=== PATIENT | female | born 1975 | race Caucasian/White ===

== ENCOUNTER 2017-02-09 05:01 | Day surgery (SDC) | payer BC ==
[2017-02-08 15:03] VITALS: BMI 19.1
[2017-02-09] MEDS ORDERED: PROPOFOL 20 ML ONE (14:16)
[2017-02-09] MEDS ORDERED: SUCCINYLCHOLINE CHLORIDE 200 MG/10 ML VIAL ONE (14:16)
[2017-02-09] MEDS ORDERED: MIDAZOLAM HCL 2 MG/2 ML SINGLE DOSE VIAL ONE (14:20)
[2017-02-09] MEDS ORDERED: LIDOCAINE HCL/PF 2% SDV 5ML VIAL ONE (14:32)
--- NOTE | 2017-02-09 14:44 | HP ---
Past Medical History - Primary Care Physician PCP:: Yaw Bernard - Admission Chief Complaint: 41 yo P1 with missed AB admitted for suction, D&C History of Present Illness: Missed AB, no pain, no bleeding History Source: Patient, Medical Record Limitations to Obtaining History: No Limitations - Past Medical History TRASH MAN: No: Alzheimer's, CVA, Dementia, Migraine, Multiple Sclerosis, Peripheral Neuropathy, Parkinson's, Seizure, Syncope, TIA, Vertigo, Other Cardiovascular: No: AFIB, Aneurysm, Aortic Insufficiency, Aortic Stenosis, CAD, CHF, Deep Vein Thrombosis, HTN, Hyperlipdemia, LA, Mitral Insufficiency, Mitral Stenosis, Murmur, Pulmonary Hypertension, Other Pulmonary: No: Asthma, Bronchitis, Cancer, COPD, O2 Dependent, Pneumonia, Previously Intubated, Pulmonary Embolus, Pulmonary Fibrosis, Sleep Apnea, Other Gastrointestinal: No: Ascites, Cancer, Constipation, Crohn's Disease, Diverticulitis, Diverticulosis, Esophageal Varices, Gastritis, GERD, GI Bleed, Hemorrhoids, Hiatal Hernia, Inflamatory Bowel Disease, Irritable Bowel Disease, Pancreatitis, Peptic Ulcer Disease, Ulcerative Colitis, Other Hepatobiliary: No: Cirrhosis, Cholelithiasis, Cholecystitis, Choledocholithiasis , Hepatitis A, Hepatitis B, Hepatitis C, Other Renal/: No: Renal Failure, Renal Inusuff, BPH, Cancer, Hematuria, Hemodialysis , Neurogenic Bladder, Renal Calculi, UTI, Other Reproductive: Yes: Fibroids ...Para: 1 Heme/Onc: No: Anemia, B12 Deficiency, Bleeding Disorder, Cancer, Current Chemotherapy, Current Radiation Therapy, Hemochromatosis, Hypercoaguable State, Myeloproliferative Synd, Sickle Cell Disease, Sickle Cell Trait, Thrombocytopenia, Other Infectious Disease: No: AIDS, C-Diff, Herpes Zoster, HIV, MRSA, STD's, Tuberculosis, VREF, Other Psych: No: Addictions, Anxiety, Bipolar, Depression, Panic, Psychosis, Schizophrenia, Other Musculoskeletal: No: Bursitis, Chronic low back pain, Hemiparesis, Hemiplegia, Osteoarthritis, Paraplegia, Other Rheumatology: No: Fibromyalgia, Gout, Lupus, Rheumatoid Arthritis, Sarcoidosis, Vasculitis, Other ENT: No: Allergic Rhinitis, Sinusitis, Other Endocrine: Yes: Other (thyroid nodule, euthyroid) Dermatology: No: Basal Cell, Cellulitis, Eczema, Melanoma, Psoriasis, Squamous Cell, Other - Past Surgical History Past Surgical History: No: None, AAA Repair, AICD, Amputation, Appendectomy, Arthrosocopy, AV Fistula/Graft, Bariatric Surgery, Breast Biopsy, Bypass, CABG, Carotid Endarterectomy, Cataract Removal, Cholecystectomy, Colectomy, Colonoscopy, Colostomy, Craniotomy, , Cystectomy, Hernia Repair, Hysterectomy, Ileal Conduit, Ileosotomy, Joint Replacement, Kidney Transplant, Laminectomy, Liver Transplant, Mastectomy, Nephrectomy, Oopherectomy, Orchiectomy, Permanent Pacemaker, Prostatectomy, Splenectomy, Stent, Thoracotomy , TURP, Tonsillectomy, Tubal Ligation, Upper Endoscopy, Valve Replacement, Vasectomy, Vein Stripping/Ligation Hx Myomectomy: No Hx Transabdominal Cerclage: No - Smoking History Smoking history: Never smoked - Alcohol/Substance Use Hx Alcohol Use: No History of Substance Use: reports: None - Social History Usual Living Arrangement: Yes: With Spouse, With Child ADL: Independent 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 History of Recent Travel: No Home Medications - Allergies Allergies/Adverse Reactions: Allergies Allergy/AdvReac Type Severity Reaction Status Date / Time No Known Allergies Allergy Verified 02/08/17 14:56 - Home Medications Home Medications: Ambulatory Orders NK [No Known Home Medication] 02/08/17 Family Disease History - Family Disease History Family History: Denies Review of Systems - Review of Systems Constitutional: reports: No Symptoms Eyes: reports: No Symptoms HENT: reports: No Symptoms Neck: reports: No Symptoms Cardiovascular: reports: No Symptoms Respiratory: reports: No Symptoms Gastrointestinal: reports: No Symptoms Genitourinary: reports: No Symptoms Breasts: reports: No Symptoms Reported Musculoskeletal: reports: No Symptoms Integumentary: reports: No Symptoms Neurological: reports: No Symptoms Endocrine: reports: No Symptoms Hematology/Lymphatic: reports: No Symptoms Psychiatric: reports: No Symptoms Pain Intensity: 0 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 Vital Signs: Vital Signs Temperature 98.3 F 02/09/17 12:46 Pulse Rate 68 02/09/17 12:46 Respiratory Rate 20 02/09/17 12:46 Blood Pressure 110/74 02/09/17 12:46 O2 Sat by Pulse Oximetry (%) 97 02/09/17 12:46 Constitutional: Yes: Well Nourished, No Distress, Calm Eyes: Yes: WNL, Conjunctiva Clear HENT: Yes: WNL, Atraumatic, Normocephalic Neck: Yes: WNL, Supple, Trachea Midline Cardiovascular: Yes: WNL, Regular Rate and Rhythm Respiratory: Yes: WNL, Regular, CTA Bilaterally Gastrointestinal: Yes: WNL, Normal Bowel Sounds, Soft Renal/: Yes: WNL Pelvis: Yes: WNL External Genitalia: Yes: Normal Internal Exam Deferred: No Vaginal Exam: Yes: Normal Cervix: Yes: Normal Uterus: Yes: Anteverted, Enlarged Adnexa: Normal: Left, Right Musculoskeletal: Yes: WNL Extremities: Yes: WNL Edema: No Integumentary: Yes: WNL Neurological: Yes: WNL, Alert, Oriented ...Motor Strength: WNL Psychiatric: Yes: WNL, Alert, Oriented Imaging - Results Ultrasound: Report Reviewed Assessment/Plan 41 yo P1 with missed AB admitted for suction, D&C. We discussed the risks, benefits, and alternatives of surgery. Risks of infection, bleeding, pain, scarring, amenorrhea, perforation, etc. discussed. Pt verbalized her understanding and requested to proceed.
[2017-02-09] MEDS ORDERED: KETOROLAC TROMETHAMINE 30 MG/1 ML VIAL ONE (14:58)
[2017-02-09] MEDS ORDERED: IBUPROFEN 600 MG TABLET (FP) PO PRN (15:22)
[2017-02-09] MEDS ORDERED: ACETAMINOPHEN 325 MG TABLET (FP) PO PRN (15:22)
[2017-02-09] MEDS ORDERED: PROMETHAZINE HCL 25 MG/1 ML VIAL IVPUSH PRN (15:35)
[2017-02-09] MEDS ORDERED: oxyCODONE HCL 5 MG TABLET PO PRN (15:35)
[2017-02-09] MEDS ORDERED: ONDANSETRON 4 MG/2 ML VIAL IVPUSH PRN (15:35)
--- NOTE | 2017-02-09 15:35 | OP ---
Operative Note - Note: Operative Date: 02/09/17 Pre-Operative Diagnosis: Missed AB, fibroid uterus Operation: Suction, D&C. Findings: POC, normal appearing uterine cavity felt on curettage Post-Operative Diagnosis: Same as Pre-op Surgeon: Yaw Bernard Anesthesiologist/RECEIVING CLERK: Eliecre Germain Anesthesia: General Specimens Removed: POC Estimated Blood Loss (mls): 60 Blood Volume Replaced (mls): 0 Fluid Volume Replaced (mls): 700 Operative Report Dictated: Yes
[2017-02-09] MEDS ORDERED: LACTATED RINGERS SOLUTION 1,000 ML IV SCH (15:45)
[2017-02-09 16:44] VITALS: PULSE 60
[2017-02-09 17:56] VITALS: TEMP 97.6
[2017-02-09 18:36] VITALS: BP 100/55
--- NOTE | 2017-02-10 19:10 | OP ---
DATE OF OPERATION: 02/09/2017 PREOPERATIVE DIAGNOSIS: Missed , fibroid uterus. POSTOPERATIVE DIAGNOSIS: Missed , fibroid uterus. SURGEON: Hasmukh Hicks M.D. PROCEDURE: Missed treated surgically with suction dilation and curettage less than 14 weeks of gestation. PATHOLOGY: Products of conception. COMPLICATIONS: None. ANESTHESIA: General. ANESTHESIOLOGIST: Eliecer Germain M.D. INTRAVENOUS FLUID: 700 mL. ESTIMATED BLOOD LOSS: 60 mL. FINDINGS: Slightly enlarged anteverted uterus with no pelvic or adnexal masses. Products of conception were noted on suction curettage. A normal endometrial cavity was palpated with the sharp curet. No retained products of conception. PROCEDURE: The patient was met preoperatively. Risks, benefits, and alternatives of surgery were discussed in detail. All questions were answered. The patient was then brought to the OR. The patient was placed on a surgical table in the supine position. General anesthesia was achieved without difficulty. The patient was then placed in a dorsal lithotomy position using adjustable Mookie stirrups. The patient was examined under anesthesia with the results as described previously. The patient was then prepped and draped in the usual sterile fashion. A sterile speculum was introduced inside the vagina with good visualization of the cervix. The anterior cervical lip was grasped with a single tooth tenaculum. The cervical os was dilated to accommodate size 25 Willis dilator. An 8-mm suction curet was used to evacuate the products of conception. Once this was completed, a gentle curettage was performed to assure no retained tissue. Once this was completed, all of the instruments were removed from the patient. Good hemostasis was confirmed. Sponge, lap, and instrument counts were correct. The patient was returned to supine position. She was transferred to recovery room awake and in stable condition. HASMUKH HICKS M.D. [id number]
--- NOTE | 2017-02-11 12:26 | PATH ---
Surgical Pathology Report Patient Name: CECILIA SCHROEDER Med. Rec. #: [id number] /Age/Gender: 1975 (Age: 41) / F Account: [id number] Location: [facility] SURGICAL Taken: 02/09/2017 Received: 02/10/2017 Reported: 02/11/2017 Physicians: Yaw Bernard M.D. Specimen(s) Received PRODUCTS OF CONCEPTION Clinical History Missed Final Diagnosis UTERINE CONTENTS, EVACUATION: CHORIONIC VILLI CONSISTENT WITH PRODUCTS OF CONCEPTION. Electronically Signed Maulik Tse M.D. Gross Description Received in formalin labeled "products of conception," is an 11.5 x 6.5 x 1.6 cm aggregate of red-brown soft tissue fragments. Villous tissue is identified. No definite somatic tissue is identified. A senior sales representative portion is submitted in one cassette. /02/10/2017 saudi02/10/2017
== END 2017-02-09 18:15 | disposition home or self-care (01) ==
LOC: JASU-SURG 05:01
PROVIDERS: ATTEND Obstetrics & Gynecology
PROC: 10D17ZZ Extraction of Products of Conception, Retained, Via Natural or Artificial Opening (ICD-10-PCS; principal; 2017-02-09 15:00)
DX: O02.1 Missed abortion (principal); D25.9 Leiomyoma of uterus, unspecified
CPT/HCPCS: 88305-TC; 94760

== ENCOUNTER 2017-08-16 14:02 | Inpatient (IN) | payer BC ==
[2017-08-16 14:07] VITALS: BMI 19.4
--- NOTE | 2017-08-16 14:18 | PDOC ---
History of Present Illness - General Chief Complaint: Vaginal Bleeding Stated Complaint: PCP SENT FOR D&C Time Seen by Provider: 08/16/17 14:10 History Source: Patient - History of Present Illness Initial Comments: 08/16/17 14:18 Patient is a 42 y.o. female who presents at the [facility] of Dr. Bernard for direct admit for a D&C later today 2/2 to a incomplete spontaneous . At presentation patient is c/o lightheadedness (likely 2/2 to active vaginal bleed ) however denies any chest pain or shortness of breath. Past History - Past Medical History Allergies/Adverse Reactions: Allergies Allergy/AdvReac Type Severity Reaction Status Date / Time No Known Allergies Allergy Verified 08/16/17 14:06 Home Medications: Ambulatory Orders NK [No Known Home Medication] 08/16/17 Anemia: Yes Asthma: No Cancer: No Cardiac Disorders: No CVA: No COPD: No CHF: No Dementia: No Diabetes: No GI Disorders: No Disorders: No HTN: No Hypercholesterolemia: No Liver Disease: No Seizures: No Thyroid Disease: Yes (? HYPER - NO MEDS) - Surgical History Abdominal Surgery: No Appendectomy: No Cardiac Surgery: No Cholecystectomy: No Lung Surgery: No Neurologic Surgery: No Orthopedic Surgery: No - Reproductive History Expected Date of Delivery: 10/26/15 (#): 1 Para: 1 - Suicide/Smoking/Psychosocial Hx Smoking History: Never smoked Hx Alcohol Use: No Drug/Substance Use Hx: No Substance Use Type: None Hx Substance Use Treatment: No Review of Systems - Review of Systems Constitutional: No: Chills, Fever Respiratory: No: Cough, Shortness of Breath Cardiac (ROS): Yes: Lightheadedness. No: Chest Pain, Irregular Heart Rate, Palpitations All Other Systems: Reviewed and Negative *Physical Exam - Vital Signs Last Vital Signs Temp Pulse Resp BP Pulse Ox 98.1 F 60 18 127/73 100 08/16/17 14:05 08/16/17 14:05 08/16/17 14:05 08/16/17 14:05 08/16/17 14:05 ED Treatment Course - LABORATORY CBC & Chemistry Diagram: 08/16/17 14:54 08/16/17 14:55 Medical Decision Making - Medical Decision Making 08/16/17 14:34 Patient is 42 y.o. female [facility] for D&C later today 2/2 to incomplete spontaneous . On PE patient is afebrile, hemodynamically stable but does c/o lightheadedness likely 2/2 to blood loss. PLAN: 1. CBC, CMP 2. PT, PTT 3. EKG 4. Type & Screen Disposition: Admit to Dr. Bernard *DC/Admit/Observation/Transfer Diagnosis at time of Disposition: Spontaneous - Discharge Dispostion Condition at time of disposition: Good Admit: Yes
[2017-08-16 15:02] LABS: BASOPHIL 1.2 % (0-2.0); EOSINOPHIL 5.4 % (0-4.5); MCH 30.8 pg (25.7-33.7); MCHC 33.1 g/dl (32.0-36.0); MEAN PLT VOLUME 9.3 fl (7.5-11.1); NEUTROPHILS 65.2 % (42.8-82.8); PLATELET COUNT 190 K/MM3 (134-434); RDW 14.3 % (11.6-15.6); WHITE BLOOD COUNT 6.1 K/mm3 (4.0-10.0)
[2017-08-16 15:19] LABS: INR 0.99 (0.82-1.09); PROTHROMBIN TIME (PATIENT) 10.9 SEC (9.98-11.88)
[2017-08-16 15:22] LABS: ACTIVATED PTT 35.7 SECONDS (26.9-34.4)
[2017-08-16 15:25] LABS: ALBUMIN 3.9 g/dl (3.4-5.0); ANION GAP 8 (8-16); BILIRUBIN,TOTAL 0.2 mg/dL (0.2-1.0); CALCIUM 8.9 mg/dL (8.5-10.1); CO2 29 mmol/L (21-32); CREATININE 0.7 mg/dL (0.55-1.02); GLUCOSE,RANDOM 88 mg/dL (74-106); SGOT/AST 15 U/L (15-37); SGPT/ALT 30 U/L (12-78); TOT PROT 7.2 g/dl (6.4-8.2)
[2017-08-16 15:26] LABS: ALK PHOS 66 U/L (45-117)
--- NOTE | 2017-08-16 16:26 | PDOC ---
Attending Attestation - Resident Resident Name: RitaBobbi - ED Attending Attestation I have performed the following: I have examined & evaluated the patient, The case was reviewed & discussed with the resident, I agree w/resident's findings & plan, Exceptions are as noted - HPI HPI: 08/16/17 16:21 42 yo F presenting to the ER due to vaginal bleeding To go to the OR today for D&C - Physicial Exam PE: 08/16/17 16:24 GENERAL: The patient is in no acute distress. LUNGS: Breath sounds equal, clear to auscultation bilaterally. No wheezes, and no crackles. HEART:Regular rate and rhythm, normal S1 and S2 without murmur, rub or gallop. ABDOMEN: Soft, nontender, normoactive bowel sounds. - Medical Decision Making 08/16/17 16:24 42-year-old female was anything to the emergency department with vaginal bleeding To the OR with Dr Swift Twelve-lead EKG was performed and reviewed by me. There is normal sinus rhythm with a normal rate. The axis is normal. The intervals are normal. There are no ST or T wave abnormalities. Impression: Normal twelve-lead EKG 08/16/17 16:26
[2017-08-16] MEDS ORDERED: FLU VACCINE QUAD 60 MCG/0.5 ML (MDV 17-18) IM ONE (17:45)
[2017-08-16] MEDS ORDERED: DEXTROSE 5%-LACTATED RINGERS 1,000 ML IV SCH (18:15)
--- NOTE | 2017-08-16 23:17 | HP ---
Past Medical History - Primary Care Physician PCP:: Yaw Bernard - Admission Chief Complaint: 42yo P1 with incomlpete Ab and anemia History of Present Illness: Heavy bleeding on 08/12/17 and dizzy today. Pt was admitted from the ER. We discussed expectant mgt and D&C. 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: No: Alzheimer's, CVA, Dementia, Migraine, Multiple Sclerosis, Peripheral Neuropathy, Parkinson's, Seizure, Syncope, TIA, Vertigo, Other Cardiovascular: No: AFIB, Aneurysm, Aortic Insufficiency, Aortic Stenosis, CAD, CHF, Deep Vein Thrombosis, HTN, Hyperlipdemia, UT, Mitral Insufficiency, Mitral Stenosis, Murmur, Pulmonary Hypertension, Other Pulmonary: No: Asthma, Bronchitis, Cancer, COPD, O2 Dependent, Pneumonia, Previously Intubated, Pulmonary Embolus, Pulmonary Fibrosis, Sleep Apnea, Other Gastrointestinal: No: Ascites, Cancer, Constipation, Crohn's Disease, Diverticulitis, Diverticulosis, Esophageal Varices, Gastritis, GERD, GI Bleed, Hemorrhoids, Hiatal Hernia, Inflamatory Bowel Disease, Irritable Bowel Disease, Pancreatitis, Peptic Ulcer Disease, Ulcerative Colitis, Other Hepatobiliary: No: Cirrhosis, Cholelithiasis, Cholecystitis, Choledocholithiasis , Hepatitis A, Hepatitis B, Hepatitis C, Other Renal/: No: Renal Failure, Renal Inusuff, BPH, Cancer, Hematuria, Hemodialysis , Neurogenic Bladder, Renal Calculi, UTI, Other Reproductive: No: Ectopic , Endometriosis, Fibroids, PID, Polycystic Ovary Syndrome, Postmenopausal, Other ...Para: 1 Heme/Onc: Yes: Anemia Infectious Disease: No: AIDS, C-Diff, Herpes Zoster, HIV, MRSA, STD's, Tuberculosis, VREF, Other Psych: No: Addictions, Anxiety, Bipolar, Depression, Panic, Psychosis, Schizophrenia, Other Musculoskeletal: No: Bursitis, Chronic low back pain, Hemiparesis, Hemiplegia, Osteoarthritis, Paraplegia, Other Rheumatology: No: Fibromyalgia, Gout, Lupus, Rheumatoid Arthritis, Sarcoidosis, Vasculitis, Other ENT: No: Allergic Rhinitis, Sinusitis, Other Endocrine: Yes: Other (thyroid nodule, euthyroid). 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 of 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 Travel: No Home Medications - Allergies Allergies/Adverse Reactions: Allergies Allergy/AdvReac Type Severity Reaction Status Date / Time No Known Allergies Allergy Verified 08/16/17 14:06 - Home Medications Home Medications: Ambulatory Orders NK [No Known Home Medication] 08/16/17 Family Disease History - Family Disease History Family History: Unremarkable Review of Systems - Review of Systems Constitutional: reports: Weakness Eyes: reports: No Symptoms HENT: reports: No Symptoms Neck: reports: No Symptoms Cardiovascular: reports: No Symptoms Respiratory: reports: No Symptoms Gastrointestinal: reports: No Symptoms Genitourinary: reports: No Symptoms Breasts: reports: No Symptoms Reported Musculoskeletal: reports: No Symptoms Integumentary: reports: No Symptoms Neurological: reports: No Symptoms Endocrine: reports: No Symptoms Hematology/Lymphatic: reports: No Symptoms Psychiatric: reports: No Symptoms Pain Intensity: 3 Physical 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-ANALYTICAL DATA 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 Vital Signs: Vital Signs Temperature 98.5 F 08/16/17 17:15 Pulse Rate 61 08/16/17 17:15 Respiratory Rate 18 08/16/17 21:00 Blood Pressure 111/52 08/16/17 17:15 O2 Sat by Pulse Oximetry (%) 96 08/16/17 21:00 Constitutional: Yes: Well Nourished, No Distress, Calm Eyes: Yes: WNL, Conjunctiva Clear, EOM Intact HENT: Yes: WNL, Atraumatic, Normocephalic Neck: Yes: WNL, Supple, Trachea Midline Cardiovascular: Yes: WNL, Regular Rate and Rhythm Respiratory: Yes: WNL, Regular, CTA Bilaterally Gastrointestinal: Yes: WNL, Normal Bowel Sounds, Soft ...Rectal Exam: Yes: Deferred Renal/: Yes: WNL Pelvis: Yes: WNL External Genitalia: Yes: Normal Internal Exam Deferred: No Vaginal Exam: Yes: Normal Cervix: Yes: Other (os open) Uterus: Yes: Enlarged Adnexa: Normal: Left, Right Musculoskeletal: Yes: WNL Extremities: Yes: WNL Edema: No Integumentary: Yes: WNL Neurological: Yes: WNL, Alert, Oriented ...Motor Strength: WNL Psychiatric: Yes: WNL, Alert, Oriented Labs: CBC, BMP 08/16/17 14:54 08/16/17 14:55 Imaging - Results Ultrasound: Report Reviewed Assessment/Plan 42yo P1 with incomplete Ab admitted for D&C. We had a long discussion about the risks, benefits, and alternatives of surgery. I explained the risks of infection , bleeding, scarring, amenorrhea, Asherman's syndrome, infertility, perforation , need for additional surgery to treat any complications, etc. The pt declined expectant management of incomplete ab or prostaglandin tx. She requested to proceed with surgery.
[2017-08-16] MEDS ORDERED: KETOROLAC TROMETHAMINE 30 MG/1 ML VIAL ONE (23:25)
[2017-08-16] MEDS ORDERED: LIDOCAINE HCL/PF 2% SDV 5ML VIAL ONE (23:25)
[2017-08-16] MEDS ORDERED: PROPOFOL 20 ML ONE (23:25)
[2017-08-16] MEDS ORDERED: DEXAMETHASONE SOD PHOSPHATE 4 MG/1 ML VIAL ONE (23:25)
[2017-08-16] MEDS ORDERED: MIDAZOLAM HCL 2 MG/2 ML SINGLE DOSE VIAL ONE ×2 (23:25)
[2017-08-16] MEDS ORDERED: ONDANSETRON 4 MG/2 ML VIAL IVPUSH PRN (23:51)
[2017-08-16] MEDS ORDERED: PROMETHAZINE HCL 25 MG/1 ML VIAL IVPUSH PRN (23:51)
[2017-08-16] MEDS ORDERED: oxyCODONE HCL 5 MG TABLET PO PRN (23:51)
--- NOTE | 2017-08-16 23:54 | OP ---
Operative Note - Note: Operative Date: 08/16/17 Pre-Operative Diagnosis: Incomplete Ab Operation: Suction D&C Findings: Open cervical os, enlarged uterus, Small amount of POC Post-Operative Diagnosis: Same as Pre-op Surgeon: Yaw Bernard Anesthesiologist/DISPATCHER SERVICE CHIEF: Storm Yanez Anesthesia: General Specimens Removed: POC Estimated Blood Loss (mls): 30 Blood Volume Replaced (mls): 0 Fluid Volume Replaced (mls): 500 Operative Report Dictated: Yes
--- NOTE | 2017-08-17 07:38 | OP ---
DATE OF OPERATION: 08/16/2017 PREOPERATIVE DIAGNOSIS: Incomplete . POSTOPERATIVE DIAGNOSIS: Incomplete . PROCEDURES PERFORMED: Suction dilatation and curettage. SURGEON: Hasmukh Hicks MD ANESTHESIOLOGIST: Storm Yanez M.D. ANESTHESIA: General. COMPLICATIONS: None. PATHOLOGY: Products of conception. INTRAVENOUS FLUIDS: 500 mL. ESTIMATED BLOOD LOSS: 30 mL. FINDINGS: Examination under anesthesia revealed an enlarged, anteverted uterus consistent with approximately 8 weeks of gestation. An open cervical os was noted. The cervical os was dilated to approximately 1 to 2 cm. A small amount of products of conception noted at suction curettage. No retained products of conception at the end of the procedure. DESCRIPTION OF PROCEDURE: The patient was met preoperatively. The risks, benefits and alternatives of surgery were discussed in detail. All questions were answered. The patient was then brought to the OR, with the IV running. She was placed on the surgical table in the supine position. General anesthesia was achieved without difficulty. The patient was then placed in a dorsal lithotomy position using adjustable Mookie stirrups. She was examined under anesthesia, with the findings as described above. The time-out procedure was conducted as per standard protocol. The patient was then prepped and draped in the usual sterile fashion. A sterile speculum was introduced inside the vagina, with good visualization of the cervix. An Allis clamp was then used to grasp the anterior cervical lip. The cervical os did not need to be dilated. An 8-mm suction curette was then used to evacuate the products of conception. Once the products of conception were removed, a gentle sharp curettage was performed to assure no retained products of conception. Once this was completed, good hemostasis was noted. All of the instruments were removed from the patient. Sponge, lap and instrument counts were correct. The patient was transferred to the recovery room awake and in stable condition. HASMUKH HICKS M.D. [id number]
--- NOTE | 2017-08-17 10:05 | PN ---
Progress Note (short form) - Note Progress Note: POD #1 - s/p D&C under general anesthesia. Pt. doing well, walking about in solarium without complaints. No apparent anesthetic complications noted. Continue current care.
[2017-08-17 10:20] VITALS: BP 108/57; PULSE 82; TEMP 98.6
--- NOTE | 2017-08-17 12:00 | EKG ---
Test Reason : Blood Pressure : / mmHG Vent. Rate : 064 BPM Atrial Rate : 064 BPM P-R Int : 156 ms QRS Dur : 084 ms QT Int : 416 ms P-R-T Axes : 029 067 042 degrees QTc Int : 429 ms NORMAL SINUS RHYTHM NORMAL ECG NO PREVIOUS ECGS AVAILABLE Confirmed by TIMO HINOJOSA, CHANNING ([id number]) on 08/17/2017 11:59:44 AM Referred By: Confirmed By:CHANNING GREENWOOD MD
--- NOTE | 2017-08-23 15:27 | PATH ---
Surgical Pathology Report Patient Name: CECILIA SCHROEDER Med. Rec. #: [id number] /Age/Gender: 1975 (Age: 42) / F Account: [id number] Location: [facility] MED/SURG Taken: 08/16/2017 Received: 08/17/2017 Reported: 08/23/2017 Physicians: Yaw Bernard M.D. Specimen(s) Received UTERINE CONTENTS Clinical History Incomplete Final Diagnosis UTERINE CONTENTS, DILATATION AND CURETTAGE: CHORIONIC VILLI AND DECIDUA CONSISTENT WITH PRODUCTS OF CONCEPTION. Electronically Signed Rossy Terry M.D. Gross Description Received in formalin labeled "uterine contents," is a 7.5 x 7.0 x 0.5 cm aggregate of randall-brown soft tissue fragments. No definite villous tissue is identified. No somatic tissue is identified. A delivery representative portion is submitted in 3 cassettes. /08/17/2017 saudi08/17/2017
== END 2017-08-17 10:28 | disposition home or self-care (01) | DRG 770 ==
LOC: JER 14:02 → JERBED 14:14 → J7W 16:58
PROVIDERS: ADMIT Obstetrics & Gynecology; ATTEND Obstetrics & Gynecology
PROC: 10D17ZZ Extraction of Products of Conception, Retained, Via Natural or Artificial Opening (ICD-10-PCS; principal; 2017-08-16 19:00)
DX: O03.4 Incomplete spontaneous abortion without complication (principal); D64.9 Anemia, unspecified; N85.4 Malposition of uterus
CPT/HCPCS: 36415; 80053; 85025; 85610; 85730; 86850; 86900; 86901; 88305-TC; 90688; 93005; 93010; 94760; 99285-25; G0008

== ENCOUNTER 2018-12-01 06:23 | Inpatient (IN) | payer BC ==
[2018-12-01] MEDS ORDERED: ONDANSETRON 4 MG/2 ML VIAL IVPUSH PRN (07:46)
[2018-12-01 07:50] VITALS: BMI 23.5
[2018-12-01] MEDS ORDERED: morphine SULFATE/Preservative Free 0.5 MG/ML (1cc Syringe) ONE (07:58)
--- NOTE | 2018-12-01 08:13 | HP ---
Past Medical History - Primary Care Physician PCP:: Yaw Bernard - Admission Chief Complaint: 43yo P1 with at EGA 36w6d admitted for primary C/S due to placenta previa and fetus in transverse lie. History of Present Illness: at EGA 36w6d complicated by Placenta previa Transverse lie fibroid uterus Prior transfusion History Source: Patient Limitations to Obtaining History: No Limitations - Past Medical History MEND WORKER: No: Alzheimer's, CVA, Dementia, Migraine, Multiple Sclerosis, Peripheral Neuropathy, Parkinson's, Seizure, Syncope, TIA, Vertigo, Other Cardiovascular: No: AFIB, Aneurysm, Aortic Insufficiency, Aortic Stenosis, CAD, CHF, Deep Vein Thrombosis, HTN, Hyperlipdemia, [place], Mitral Insufficiency, Mitral Stenosis, Murmur, Pulmonary Hypertension, Other Pulmonary: No: Asthma, Bronchitis, Cancer, COPD, O2 Dependent, Pneumonia, Previously Intubated, Pulmonary Embolus, Pulmonary Fibrosis, Sleep Apnea, Other Gastrointestinal: No: Ascites, Cancer, Constipation, Crohn's Disease, Diverticulitis, Diverticulosis, Esophageal Varices, Gastritis, GERD, GI Bleed, Hemorrhoids, Hiatal Hernia, Inflamatory Bowel Disease, Irritable Bowel Disease, Pancreatitis, Peptic Ulcer Disease, Ulcerative Colitis, Other Hepatobiliary: No: Cirrhosis, Cholelithiasis, Cholecystitis, Choledocholithiasis , Hepatitis A, Hepatitis B, Hepatitis C, Other Renal/: No: Renal Failure, Renal Inusuff, BPH, Cancer, Hematuria, Hemodialysis , Neurogenic Bladder, Renal Calculi, UTI, Other Reproductive: No: Ectopic , Endometriosis, Fibroids, PID, Polycystic Ovary Syndrome, Postmenopausal, Other ...: 4 ...Para: 1 ...Term: 1 ...: 0 ...Spon : 2 ...Induced : 0 ...Multiple Gestation: 0 Heme/Onc: Yes: Anemia Infectious Disease: No: AIDS, C-Diff, Herpes Zoster, HIV, MRSA, STD's, Tuberculosis, VREF, Other Psych: No: Addictions, Anxiety, Bipolar, Depression, Panic, Psychosis, Schizophrenia, Other Musculoskeletal: No: Bursitis, Chronic low back pain, Hemiparesis, Hemiplegia, Osteoarthritis, Paraplegia, Other Rheumatology: No: Fibromyalgia, Gout, Lupus, Rheumatoid Arthritis, Sarcoidosis, Vasculitis, Other Endocrine: Yes: Other (thyroid nodule, euthyroid). No: Jose D's Disease, [place]'s Disease, Diabetes Insipidus, Diabetes Mellitus, Hyperparathyroidism, Hyperthyroidism, Hypothyroidism, Osteopenia, SIADH Dermatology: No: Basal Cell, Cellulitis, Eczema, Melanoma, Psoriasis, Squamous Cell, Other - Past Surgical History Past Surgical History: Yes: None Hx Myomectomy: No Hx Transabdominal Cerclage: No Additional Surgical History: D&C - Smoking History Smoking history: Never smoked Have you smoked in the past 12 months: No - Alcohol/Substance Use Hx Alcohol Use: No History of Substance Use: reports: None - Social History Usual Living Arrangement: Yes: With Spouse, With Child ADL: Independent 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 History of Recent Travel: No Home Medications - Allergies Allergies/Adverse Reactions: Allergies Allergy/AdvReac Type Severity Reaction Status Date / Time No Known Allergies Allergy Verified 08/16/17 14:06 - Home Medications Home Medications: Ambulatory Orders metroNIDAZOLE [Flagyl -] 500 mg PO BID #14 tablet 08/16/17 Family Disease History - Family Disease History Family History: Unremarkable Review of Systems - Review of Systems Constitutional: reports: No Symptoms Eyes: reports: No Symptoms HENT: reports: No Symptoms Neck: reports: No Symptoms Cardiovascular: reports: No Symptoms Respiratory: reports: No Symptoms Gastrointestinal: reports: No Symptoms Genitourinary: reports: No Symptoms Breasts: reports: No Symptoms Reported Musculoskeletal: reports: No Symptoms Integumentary: reports: No Symptoms Neurological: reports: No Symptoms Endocrine: reports: No Symptoms Hematology/Lymphatic: reports: No Symptoms Psychiatric: reports: No Symptoms Pain Intensity: 0 Physical Exam - Maternity Vital Signs: Vital Signs Temperature 98.0 F 12/01/18 07:00 Pulse Rate 76 12/01/18 07:00 Respiratory Rate 20 12/01/18 07:00 Blood Pressure 115/66 12/01/18 07:00 O2 Sat by Pulse Oximetry (%) Constitutional: Yes: Well Nourished, No Distress, Calm Eyes: Yes: WNL, Conjunctiva Clear HENT: Yes: WNL, Atraumatic, Normocephalic Neck: Yes: WNL, Supple, Trachea Midline Cardiovascular: Yes: WNL, Regular Rate and Rhythm Lungs: Clear to auscultation, Normal air movement - Abdominal Exam/OB Fundal Height: 37 Number of Fetuses: Single Presentation: Oblique Contractions: No Monitor Mode: External Heart Rate (range): 120 Heart Rate Location: Midline Category: I Accelerations: Non-Uniform Decelerations: None - Vaginal Exam/OB Vaginal Bleediing: No Speculum Exam: No Amniotic Membrane Status: Intact - Physical Exam Musculoskeletal: Yes: WNL Extremities: Yes: WNL Edema: No Deep Tendon Reflex Grade: Normal +2 ...Motor Strength: WNL Psychiatric: Yes: WNL, Alert, Oriented Hemorrhage Risk Assessment - Risk Factors Medium Risk Factors: Yes: None High Risk Factors: Yes: None Risk Score: 1 Risk Level: Medium Risk Imaging - Results Ultrasound: Report Reviewed Assessment/Plan 43yo P1 with at EGA 36w6d admitted for primary C/S due to placenta previa and fetus in transverse lie. We discussed the risks and benefits of C/S at length, including but not limited to scarring, pain, bleeding, infection, injury to underlying organs and structures, need for additional surgery to repair/treat any problems or complications, complications/injuries, etc. The pt verbalized her understanding and requested to proceed with surgery. The pt is aware that all surgeries have risks and no guarantees can be provided.
[2018-12-01] MEDS ORDERED: ceFAZolin SODIUM 1 GM VIAL ONE (08:15)
[2018-12-01] MEDS ORDERED: ELECTROLYTE-148 SOLN 1,000 ML IV SCH (08:15)
[2018-12-01] MEDS ORDERED: ePHEDrine SULFATE 50 MG/1 ML AMPULE ONE (08:16)
[2018-12-01] MEDS ORDERED: OXYTOCIN 10 UNITS/ML VIAL ONE (08:18)
[2018-12-01] MEDS ORDERED: KETOROLAC TROMETHAMINE 30 MG/1 ML VIAL ONE (08:18)
[2018-12-01] MEDS ORDERED: PHENYLEPHRINE HCL 10 MG/1 ML SINGLE DOSE VIAL ONE (08:19)
[2018-12-01 09:19] LABS: ARTERIAL BLD GAS O2 SATURATION 36.1 % (90-98.9); ARTERIAL BLOOD GAS BASE EXCESS -8.9 meq/l (-2-2); ARTERIAL BLOOD GAS PO2 21.9 mmHg (80-100); ARTERIAL BLOOD GAS pH 7.17 (7.35-7.45)
[2018-12-01 09:25] LABS: VENOUS PC02 57.9 mmHg (38-52); VENOUS PH 7.17 (7.32-7.42); VENOUS PO2 22.3 mmHg (28-48)
[2018-12-01] MEDS ORDERED: CITRIC ACID/SODIUM CITRATE 30 ML UNIT-DOSE CUP PO ONE (10:03)
--- NOTE | 2018-12-01 10:08 | OP ---
Operative Note - Note: Operative Date: 12/01/18 Pre-Operative Diagnosis: at EGA 36w6d. Transverse lie. Placenta previa. Fibroid uterus Operation: Primary low transverse C/S, myomectomy Findings: Live baby boy in oblique presentation with head in maternal LUQ Placenta previa Multiple fibroids Post-Operative Diagnosis: Same as Pre-op Surgeon: Yaw Bernard Invoice Clerk: Jere Lucio Anesthesiologist/SHELLFISH SHUCKER: David Go Anesthesia: Spinal Specimens Removed: Placenta, fibroids x 3 Estimated Blood Loss (mls): 1,000 Drains & Tubes with Location: Pringle cath Drains, Volume Out (mls): 400 Blood Volume Replaced (mls): 0 Fluid Volume Replaced (mls): 1,800 Operative Report Dictated: Yes
[2018-12-01] MEDS ORDERED: METHYLERGONOVINE MALEATE 0.2 MG/1 ML AMP IM PRN (10:09)
[2018-12-01] MEDS ORDERED: IBUPROFEN 800 MG/8 ML IJ IVPB PRN (10:09)
[2018-12-01] MEDS ORDERED: oxyCODONE HCL 5 MG TABLET PO PRN (10:09)
[2018-12-01] MEDS ORDERED: WITCH HAZEL 50% (TUCKS) 40 PAD/JAR PAD TP PRN (10:09)
[2018-12-01] MEDS ORDERED: TUBERCULIN PPD 5 TU/0.1ML SYRINGE (IN PATIENT USE ONLY) ID ONE (10:15)
[2018-12-01] MEDS ORDERED: OXYTOCIN 20 UNITS in 0.9% NS 20 UNIT/1,000 ML INFUS.BAG IV SCH (10:15)
[2018-12-01] MEDS ORDERED: OXYTOCIN 20 UNITS in 0.9% NS 20 UNIT/1,000 ML INFUS.BAG IV ONE (10:43)
[2018-12-01] MEDS: ENOXAPARIN NA (PORCINE) 40 MG/0.4 ML DISP.SYRIN SQ SCH (10:58)
--- NOTE | 2018-12-01 13:35 | PN ---
Delivery - Delivery Type of Anesthesia: Spinal Episiotomy/Laceration: None EBL (cc): 1,000 Delivery, Single - Stages of Labor Date of Delivery: 12/01/18 Time of Delivery: 08:39 Date Placenta Delivered: 12/01/18 Time Placenta Delivered: 08:40 Placenta: Yes: Manual Removal, Normal Configuration - Condition of Review Consultant/Mds Nurse Present: Yes Name: Cindi Zaragoza Gender: Male Weight: 2.92 kg Total Hours ROM (Hrs/Mins): 0hrs 3min - 1 Minute Total Score: 8 5 Minutes Total Score: 9 - [place] Feeding Plan Initial Plan: Exclusive throughout hospitalization
--- NOTE | 2018-12-01 14:37 | OP ---
DATE OF OPERATION: 12/01/2018 PREOPERATIVE DIAGNOSIS: at estimated gestational age of 36 weeks 6 days, placenta previa, in transverse lie, fibroid uterus. POSTOPERATIVE DIAGNOSIS: at estimated gestational age of 36 weeks 6 days, placenta previa, in transverse lie, fibroid uterus. PROCEDURE: Primary low transverse section via Pfannenstiel skin incision, myomectomy. SURGEON: Yaw Bernard MD A R SPECIALIST: Jere Lucio MD ANESTHESIOLOGIST: David Go MD ANESTHESIA: Spinal. COMPLICATIONS: None. INTRAVENOUS FLUIDS: 1000 mL. URINE OUTPUT: 400 mL of clear urine at the end of the procedure. IV FLUIDS: 1800 mL. PATHOLOGY: Placenta and uterine fibroids x3. FINDINGS: A live baby boy was noted in oblique presentation with head on the maternal left upper quadrant. The fetus was converted to a longitudinal lie breech presentation intraoperatively. Placenta previa was noted. Also multiple large vessels and varicosities were noted around the lower uterine segment and bladder bilaterally as well as anteriorly. Multiple fibroids were noted throughout the uterus, and 3 fibroids were removed in order to enable a proper uterine closure. DESCRIPTION OF PROCEDURE: The patient was met preoperatively. Risks, benefits, and alternatives of surgery were discussed in detail. All questions were answered. The patient was brought to the OR with the IV running. She was placed on the surgical table in the sitting position. The spinal anesthesia was achieved without difficulty. The patient was then placed in a supine position with a leftward tilt. A Pringle catheter was left to drain to gravity. The patient was prepped and draped in the usual sterile fashion. A time-out procedure was conducted as per standard protocol. The surgeons then proceeded with the operation. A Pfannenstiel skin incision was made with the knife approximately 2 cm above the pubic symphysis. The incision was taken down to the level of the fascia. The fascia was incised in the midline, and the incision was extended bilaterally using Dunham scissors. The fascia was dissected away from the rectus muscles superiorly and inferiorly. The rectus muscles were in the midline bluntly. The peritoneum was identified and entered sharply. The peritoneal incision was extended superiorly and inferiorly. At that point, the uterus, bladder, and lie were accessed. The fetus was noted to be in oblique lie with the head in maternal left upper quadrant. There were multiple uterine fibroids dispersed throughout the uterus. The lower uterine segment and bladder were noted to be surrounded by large bladder vessels and varicosities. The bladder peritoneum was incised, and the bladder was gently dissected away from the lower uterine segment. The bladder was then reflected downwards. The uterus was incised transversely in the lower uterine segment. The baby was rotated to longitudinal lie breech presentation. The uterine incision was extended bilaterally using bandage scissors. The baby was then delivered from breech presentation without complications. The baby was crying spontaneously. The umbilical cord was clamped and cut. The baby was handed to the awaiting linoleum layer helper. A segment of the umbilical cord was secured and sent for umbilical cord gas. The placenta was then removed manually and without complications. The uterus was cleared of all clot and debris. The uterus was exteriorized and the uterine incision was repaired using a 0 Biosyn suture with running and locking stitch. Good hemostasis was noted. The uterine incision was then imbricated using a 0 Biosyn suture with good hemostasis and approximation. The bladder serosa was approximated using a 0 Biosyn suture with good hemostasis. The uterus was then returned to the abdominal cavity. The operative site was irrigated using copious amounts of normal saline. Once the saline was aspirated, good hemostasis was noted. The abdominal peritoneum was closed using a 2-0 chromic suture. The rectus muscles were approximated in the midline using several interrupted 2-0 chromic sutures. The fascia was closed using a 0 Vicryl suture with a running stitch. The subcutaneous adipose tissues and Matt fascia were approximated to eliminate space. The skin was closed using a 3-0 Vicryl suture using a subcutaneous stitch. Sponge, lap, needle, and instrument counts were correct. The patient was transferred to the recovery room in stable condition and awake. Shanthi [id number]
[2018-12-02 07:17] LABS: BASO % 0.2 % (0-2.0); EOS % 0.4 % (0-4.5); HEMATOCRIT 23.7 % (32.4-45.2); LYMPH % 7.3 % (8-40); MCH 31.2 pg (25.7-33.7); MCHC 33.8 g/dl (32.0-36.0); MEAN CELL VOLUME 92.4 fl (80-96); MEAN PLT VOLUME 9.3 fl (7.5-11.1); MONO % 5.3 % (3.8-10.2); NEUT % 86.8 % (42.8-82.8); PLATELET COUNT 178 K/MM3 (134-434); RBC 2.57 M/mm3 (3.60-5.2); WHITE BLOOD COUNT 11.4 K/mm3 (4.0-10.0)
[2018-12-02] MEDS: ENOXAPARIN NA (PORCINE) 40 MG/0.4 ML DISP.SYRIN SQ SCH (09:45)
[2018-12-02] MEDS: PRENATAL VITAMINS W/ FOLIC ACID TABLET (FP) PO SCH (09:45)
--- NOTE | 2018-12-02 09:49 | PN ---
Progress Note (short form) - Note Progress Note: Post op day#1.S/P C Section under spinal anesthesia with duramorph uneventful.Patient stable and has some pain for which she is on medication.No any anesthesia related problem.Patient Dc from the anesthesia care.
[2018-12-02] MEDS ORDERED: BISACODYL 10 MG SUPP.RECT RC PRN (10:09)
--- NOTE | 2018-12-02 11:11 | PN ---
Progress Note (short form) - Note Progress Note: pod 1doing well, passing gas , tolerating diet, no dizziness , no heavy vaginal bleeding CBC, BMP 12/02/18 06:00 Last Vital Signs Temp Pulse Resp BP Pulse Ox 97.7 F 79 18 89/62 L 100 12/02/18 08:00 12/02/18 08:00 12/02/18 10:00 12/02/18 08:00 12/01/18 21:00 abdomen soft, no distension, no cva , BS present incision dry, clean no calf tendrness lochia minimal impression pod 1 , afebrile anemia , asymptomatic , no active vaginal bleeding plan observation. iron, vit repeat cbc
[2018-12-02] MEDS: IBUPROFEN 600 MG TABLET (FP) PO PRN ×3 (12:35→20:34)
[2018-12-02] MEDS: SIMETHICONE 80 MG TAB.CHEW (FP) PO PRN (20:34)
[2018-12-03] MEDS: IBUPROFEN 600 MG TABLET (FP) PO PRN ×5 (04:33→23:36)
[2018-12-03] MEDS: ACETAMINOPHEN 325 MG TABLET (FP) PO PRN ×5 (04:33→23:36)
[2018-12-03] MEDS: SIMETHICONE 80 MG TAB.CHEW (FP) PO PRN ×4 (04:34→23:41)
--- NOTE | 2018-12-03 09:08 | PN ---
Progress Note (short form) - Note Progress Note: pod 2 s/p c/s doing well, no c/o, void ok , passing gas,no heavy vaginal bleeding no dizziness or CBC, BMP 12/02/18 06:00 Last Vital Signs Temp Pulse Resp BP Pulse Ox 98.2 F 71 18 114/64 100 12/03/18 07:40 12/03/18 07:40 12/03/18 07:40 12/03/18 07:40 12/01/18 21:00 abdomen soft, no distension, BS are present, no cva uterus firm incision dry, clean no calf tenderness anemia. asymptomatic plan ambulate , cbc in am iron, vit
[2018-12-03] MEDS: ENOXAPARIN NA (PORCINE) 40 MG/0.4 ML DISP.SYRIN SQ SCH (09:33)
[2018-12-03] MEDS: PRENATAL VITAMINS W/ FOLIC ACID TABLET (FP) PO SCH (09:34)
[2018-12-03] MEDS: DOCUSATE SODIUM 100 MG CAPSULE (FP) PO PRN ×2 (10:21→23:35)
[2018-12-04] MEDS: ACETAMINOPHEN 325 MG TABLET (FP) PO PRN ×5 (04:38→21:03)
[2018-12-04] MEDS: IBUPROFEN 600 MG TABLET (FP) PO PRN ×5 (04:38→21:02)
[2018-12-04] MEDS: SIMETHICONE 80 MG TAB.CHEW (FP) PO PRN ×5 (04:39→21:03)
[2018-12-04 06:00] LABS: BASO % 1.1 % (0-2.0); EOS % 3.5 % (0-4.5); HEMATOCRIT 21.6 % (32.4-45.2); HEMOGLOBIN 7.6 GM/dL (10.7-15.3); LYMPH % 32.3 % (8-40); MCH 32.1 pg (25.7-33.7); MCHC 35.2 g/dl (32.0-36.0); MEAN CELL VOLUME 91.1 fl (80-96); MEAN PLT VOLUME 8.4 fl (7.5-11.1); MONO % 4.7 % (3.8-10.2); NEUT % 58.4 % (42.8-82.8); PLATELET COUNT 201 K/MM3 (134-434); RBC 2.37 M/mm3 (3.60-5.2); RDW 14.2 % (11.6-15.6); WHITE BLOOD COUNT 5.4 K/mm3 (4.0-10.0)
--- NOTE | 2018-12-04 09:08 | PN ---
Progress Note (short form) - Note Progress Note: pod 3, s/p c/s , anemia , asymptomatic, ambulating, no dizziness Last Vital Signs Temp Pulse Resp BP Pulse Ox 97.9 F 65 20 118/67 100 12/04/18 08:56 12/04/18 08:56 12/04/18 08:56 12/04/18 08:56 12/01/18 21:00 CBC, BMP 12/04/18 05:55 abdomen soft, incision dry, clean no active vaginal bleeding no calf tenderness plan iron, vit repeat cbc in am before d/c home
[2018-12-04] MEDS: PRENATAL VITAMINS W/ FOLIC ACID TABLET (FP) PO SCH (09:51)
[2018-12-04] MEDS: FERROUS SO4/VIT C/FA 1 EACH TABLET.ER PO SCH (09:51)
[2018-12-04] MEDS: ENOXAPARIN NA (PORCINE) 40 MG/0.4 ML DISP.SYRIN SQ SCH (09:51)
[2018-12-04] MEDS: DOCUSATE SODIUM 100 MG CAPSULE (FP) PO PRN ×2 (09:51→21:02)
--- NOTE | 2018-12-04 20:39 | PN ---
Progress Note (short form) - Note Progress Note: pod 3 s/p c/s, anemai, no excess vaginal bleeding, no dizziness CBC, BMP 12/04/18 05:55 Last Vital Signs Temp Pulse Resp BP Pulse Ox 97.9 F 65 20 118/67 100 12/04/18 08:56 12/04/18 08:56 12/04/18 08:56 12/04/18 08:56 12/01/18 21:00 abdomen soft, no distension, BS present incision dry, clean no calf tenderness plan iron, vit observation
[2018-12-05] MEDS: ACETAMINOPHEN 325 MG TABLET (FP) PO PRN ×2 (06:13→10:06)
[2018-12-05] MEDS: IBUPROFEN 600 MG TABLET (FP) PO PRN ×2 (06:14→10:05)
[2018-12-05] MEDS: SIMETHICONE 80 MG TAB.CHEW (FP) PO PRN ×2 (06:15→10:07)
[2018-12-05 08:00] LABS: BASO % 1.4 % (0-2.0); EOS % 3.6 % (0-4.5); HEMATOCRIT 22.6 % (32.4-45.2); HEMOGLOBIN 7.7 GM/dL (10.7-15.3); LYMPH % 31.2 % (8-40); MCH 31.2 pg (25.7-33.7); MCHC 34.1 g/dl (32.0-36.0); MEAN CELL VOLUME 91.6 fl (80-96); MEAN PLT VOLUME 8.9 fl (7.5-11.1); MONO % 5.1 % (3.8-10.2); NEUT % 58.7 % (42.8-82.8); PLATELET COUNT 233 K/MM3 (134-434); RBC 2.46 M/mm3 (3.60-5.2); RDW 14.2 % (11.6-15.6); WHITE BLOOD COUNT 4.4 K/mm3 (4.0-10.0)
[2018-12-05 08:36] VITALS: BP 123/70; PULSE 62; TEMP 97.9
--- NOTE | 2018-12-05 09:24 | PN ---
Post Progress Note - Subjective Subjective: No complaints, no dizziness, no SOB, no chest pain. Ambulating well, had flatus and BM Post Day: 4 Type of Delivery: Repeat C/S Vital Signs: Vital Signs Temperature 97.9 F 12/05/18 08:35 Pulse Rate 62 12/05/18 08:35 Respiratory Rate 18 12/05/18 08:35 Blood Pressure 123/70 12/05/18 08:35 O2 Sat by Pulse Oximetry (%) 100 12/01/18 21:00 Breast Exam: Yes: Soft Uterus: Yes: Fundus Firm, Fundus below umbilicus, Non-tender Incision: Yes: Sutures intact Abdomen/GI: Yes: Abdomen soft, Tolerating PO Lochia: Yes: Rubra Lochia, amount: Small Extremities: Yes: Calves non-tender Perineum: Yes: Intact Activity: Ambulating - Labs Labs: CBC WBC 4.4 K/mm3 (4.0-10.0) 12/05/18 06:37 RBC 2.46 M/mm3 (3.60-5.2) L 12/05/18 06:37 Hgb 7.7 GM/dL (10.7-15.3) L 12/05/18 06:37 Hct 22.6 % (32.4-45.2) L 12/05/18 06:37 MCV 91.6 fl (80-96) 12/05/18 06:37 MCH 31.2 pg (25.7-33.7) 12/05/18 06:37 MCHC 34.1 g/dl (32.0-36.0) 12/05/18 06:37 RDW 14.2 % (11.6-15.6) 12/05/18 06:37 Plt Count 233 K/MM3 (134-434) 12/05/18 06:37 MPV 8.9 fl (7.5-11.1) 12/05/18 06:37 Absolute Neuts (auto) 2.6 K/mm3 (1.5-8.0) 12/05/18 06:37 Neutrophils % 58.7 % (42.8-82.8) 12/05/18 06:37 Lymphocytes % 31.2 % (8-40) 12/05/18 06:37 Monocytes % 5.1 % (3.8-10.2) 12/05/18 06:37 Eosinophils % 3.6 % (0-4.5) 12/05/18 06:37 Basophils % 1.4 % (0-2.0) 12/05/18 06:37 Nucleated RBC % 0 % (0-0) 12/05/18 06:37 Assessment/Plan 43yo P2 s/p primary LT C/S, doing well stable, afebrile. Pt is asymptomatic for anemia. Hct is stable, no need to transfuse. care instructions reviewed. Continue routine postop care. Ambulation encouraged.
--- NOTE | 2018-12-05 09:27 | DS ---
Physical Exam-FIELD AGENT Vital Signs: Vital Signs Temperature 97.9 F 12/05/18 08:35 Pulse Rate 62 12/05/18 08:35 Respiratory Rate 18 12/05/18 08:35 Blood Pressure 123/70 12/05/18 08:35 O2 Sat by Pulse Oximetry (%) 100 12/01/18 21:00 Constitutional: Yes: Well Nourished, No Distress, Calm Eyes: Yes: WNL, Conjunctiva Clear HENT: Yes: WNL, Atraumatic, Normocephalic Neck: Yes: WNL, Supple, Trachea Midline Cardiovascular: Yes: WNL, Regular Rate and Rhythm Respiratory: Yes: WNL, Regular, CTA Bilaterally Gastrointestinal: Yes: WNL, Normal Bowel Sounds, Soft ...Rectal Exam: Yes: Deferred Renal/: Yes: WNL Internal Exam Deferred: Yes ....Post : Yes: Uterus firm, Uterus non-tender, Slight lochia rubra Breast(s): Yes: WNL Musculoskeletal: Yes: WNL Extremities: Yes: WNL Edema: Yes Edema: LLE: Trace, RLE: Trace Integumentary: Yes: WNL Wound/Incision: Yes: Clean/Dry, Well Approximated, Sutures Intact, Steri Strips , Open to air Neurological: Yes: WNL, Alert, Oriented ...Motor Strength: WNL Psychiatric: Yes: WNL, Alert, Oriented Labs: CBC, BMP 12/05/18 06:37 Delivery - Delivery Type of Anesthesia: Spinal Episiotomy/Laceration: None EBL (cc): 1,000 Delivery, Single - Stages of Labor Date of Delivery: 12/01/18 Time of Delivery: 08:39 Time Placenta Delivered: 08:40 Placenta: Yes: Manual Removal, Normal Configuration - Condition of Infant Spin Instructor/Wet End Helper Present: Yes Name: Cindi Zaragoza Infant Gender: Male Weight: 2.92 kg Total Hours ROM (Hrs/Mins): 0hrs 3min - 1 Minute Total Score: 8 5 Minutes Total Score: 9 - [place] Feeding Plan Initial Plan: Exclusive throughout hospitalization Discharge Summary Reason For Visit: SECTION at EGA 36w6d with fetus in transverse lie, placenta previa Procedures: Principal: Primary LT C/S Other Procedures: Myomectomy Hospital Course: Anemia, normal recovery Condition: Good - Instructions Diet, Activity, Other Instructions: Physical activity Resume your normal everyday activity as tolerated no heavy lifting or exercise until seen by your surgeon. You may walk unlimited natty of and climb stairs. You may resume driving the car when you feel safe and comfortable behind the wheel. No sexual activity as instructed. Wound care If you have a bandage, leave it on, and keep dry for 48-72 hours. After that time discard the outer bandage. If they are tapes on the skin under the out of bandage leave them in place. They will peel off in the next 7 to 10 days. Do Not Peel them off. You may shower the day after surgery. If there are tapes present on the skin, you may shower over them. Diet There are no dietary restrictions. Eat healthy, high-fiber foods. Drink 6 to 8 glasses of liquid each day. This will assist in keeping your bowels are regular. Pain management You may take Tylenol or acetaminophen or Ibuprofen (for example, Motrin, Advil etc.) from my pain prescription medication is ordered should be taken as prescribed for moderate to severe pain. Call MD for any of the following: Severe pain not relieved by medication Fever of 101 or higher Excessive bleeding or drainage on dressing Inability to urinate Referrals: Yaw Bernard MD [Staff Physician] - Disposition: HOME - Home Medications Comprehensive Discharge Medication List: Ambulatory Orders Folic Acid 1 mg PO DAILY 12/01/18 Vitamins (Sjr) - 1 tab PO DAILY 12/01/18
[2018-12-05] MEDS: PRENATAL VITAMINS W/ FOLIC ACID TABLET (FP) PO SCH (10:04)
[2018-12-05] MEDS: FERROUS SO4/VIT C/FA 1 EACH TABLET.ER PO SCH (10:06)
[2018-12-05] MEDS: ENOXAPARIN NA (PORCINE) 40 MG/0.4 ML DISP.SYRIN SQ SCH (10:07)
[2018-12-05] MEDS: DOCUSATE SODIUM 100 MG CAPSULE (FP) PO PRN (10:14)
--- NOTE | 2018-12-12 17:47 | PATH ---
Surgical Pathology Report Patient Name: CECILIA SCHROEDER [facility]. Rec. 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 Specimen(s) Received A: PLACENTA B: FIBROIDS Clinical History , placenta previa Final Diagnosis A. PLACENTA: THIRD TRIMESTER PLACENTA WITH FOCAL NONSPECIFIC CHRONIC DECIDUITIS. TRIVASCULAR CORD. MEMBRANES WITH NO DIAGNOSTIC ABNORMALITIES. B. FIBROIDS, EXCISION: CONSISTENT WITH LEIOMYOMAS. Electronically Signed Arthur Hidalgo M.D. Gross Description A. The specimen is received fresh labeled placenta and is a 465 gram, 29.0 x 15.0 x 1.5 cm. placenta with attached membranes and umbilical cord. The attached membranes are randall, translucent with focal opacities and insert marginally. The umbilical cord measures 12 cm. in length and averages 1.2 cm. in diameter. The cord inserts eccentrically, 5.5 cm. to the nearest margin. No true knots or strictures are identified. Cut surface of the umbilical cord reveals 3 vessels. The surface is kang-blue with minimal fibrin deposition and appropriate caliber vessels. The maternal surface is red-brown with focal defects. Sectioning reveals red-brown, spongy parenchyma. No lesions are identified. Satellite Dish Installer sections are submitted in three cassettes as follows: 1- membrane rolls and umbilical cord; 2-3- full thickness sections of placenta. B. Received in formalin labeled "fibroids," is a 31 g aggregate of 3 randall, rubbery nodules ranging from 1.5-4.0 cm in greatest dimension, consistent with fibroids. Sectioning reveals randall, rubbery parenchyma with whorled architecture. No areas of hemorrhage or necrosis are identified. Satellite Dish Installer sections are submitted in 4 cassettes as follows: 1-smallest fibroid; 2-medium fibroid; 3-4-largest fibroid. 12/11/2018 [facility] [place]12/11/2018
== END 2018-12-05 11:55 | disposition home or self-care (01) | DRG 787 ==
LOC: JLDR 06:23 → J3W 13:41
PROVIDERS: ADMIT Obstetrics & Gynecology; ATTEND Obstetrics & Gynecology
PROC: 10D00Z1 Extraction of Products of Conception, Low, Open Approach (ICD-10-PCS; principal; 2018-12-01)
PROC: 0UB90ZZ Excision of Uterus, Open Approach (ICD-10-PCS; 2018-12-01)
DX: O32.2XX0 Maternal care for transverse and oblique lie, not applicable or unspecified (principal); O44.03 Complete placenta previa NOS or without hemorrhage, third trimester; O34.13 Maternal care for benign tumor of corpus uteri, third trimester; D25.9 Leiomyoma of uterus, unspecified; Z3A.36 36 weeks gestation of pregnancy; Z37.0 Single live birth
CPT/HCPCS: 36415; 36600; 82803; 85025; 88305-TC; 88307-TC